=== PATIENT | male | born 1995 | race American Indian/Alaskan Native ===

== ENCOUNTER 2022-03-05 17:03 | Inpatient (IN) | payer SELFPAY ==
[2022-03-05] MEDS ORDERED: ZIPRASIDONE MESYLATE 20 MG VIAL IM SCH (17:08)
[2022-03-05] MEDS ORDERED: WATER FOR INJ Sterile (PF) 10 ML ONE (18:15)
[2022-03-05] MEDS ORDERED: diphenhydrAMINE 50 MG/ML VIAL ONE (18:18)
[2022-03-05] MEDS ORDERED: MORPHINE 2 MG/1 ML INJ ONE (18:55)
[2022-03-05] MEDS ORDERED: SODIUM CHLORIDE 0.9% 1000 ML 1,000 ML IV ONE ×2 (19:32→20:35)
[2022-03-05 20:19] LABS: Albumin 5.4 g/dL (3.9-5); Calcium 10.4 mg/dL (8.4-10.2)
[2022-03-05 20:21] LABS: Basophils # (Auto) 0.1 K/mm3 (0.0-0.1); Basophils % (Auto) 1.1 % (0.0-1.8); Eosinophils % (Auto) 0.1 % (0.0-4.3); Hematocrit 47.9 % (35.5-45.6); Hemoglobin 16.6 gm/dl (11.8-15.2); Lymphocytes # (Auto) 1.8 K/mm3 (1.2-5.4); Lymphocytes % (Auto) 16.3 % (13.4-35.0); Mean Corpuscular HGB Conc 35 % (32-34); Mean Corpuscular Volume 89 fl (84-94); Monocytes # (Auto) 0.7 K/mm3 (0.0-0.8); Monocytes % (Auto) 6.2 % (0.0-7.3); Platelet Count 247 K/mm3 (140-440); Red Blood Count 5.36 M/mm3 (3.65-5.03)
--- NOTE | 2022-03-05 21:55 | XRay Report ---
CHEST 1 VIEW INDICATION / CLINICAL INFORMATION: Altered Mental Status. FINDINGS: SUPPORT DEVICES: None. HEART / MEDIASTINUM: No significant abnormality. LUNGS / PLEURA: No significant pulmonary or pleural abnormality. No pneumothorax. ADDITIONAL FINDINGS: No significant additional findings. IMPRESSION: 1. No acute findings. Signer Name: Erasmo Townsend MD Signed: 03/05/2022 9:51 PM Workstation Name: [facility]
[2022-03-05 22:36] LABS: Creatine Kinase MB 18.2 ng/mL (0.0-4.0)
[2022-03-05] MEDS ORDERED: MORPHINE 2 MG/1 ML INJ IV PRN (23:04)
[2022-03-05] MEDS ORDERED: MORPHINE 4 MG/1 ML INJ IV PRN (23:04)
[2022-03-05] MEDS ORDERED: ONDANSETRON 4 MG/2 ML INJ IV PRN (23:04)
[2022-03-05] MEDS ORDERED: ALBUTEROL 2.5 MG/3 ML NEBU IH PRN (23:04)
--- NOTE | 2022-03-05 23:07 | Emergency Department Report ---
ED General Adult HPI - General Chief complaint: Overdose Stated complaint: OVERDOSE PUI?: No Time Seen by Provider: 03/05/22 17:08 Source: EMS Mode of arrival: Ambulatory Limitations: No Limitations - History of Present Illness Initial comments: pt here after smoking ice, convulsions pt called police for smoking ICE , he wasn;t feeling well , has been hyperactive and moaning , no past medical history -: Gradual, unknown Worsens with: none Associated Symptoms: denies other symptoms. denies: chest pain, cough, headaches, loss of appetite, malaise, nausea/vomiting Treatments Prior to Arrival: none - Related Data Allergies Allergy/AdvReac Type Severity Reaction Status Date / Time No Known Allergies Allergy Verified 03/05/22 18:41 ED Review of Systems ROS: Stated complaint: OVERDOSE Other details as noted in HPI Constitutional: denies: chills, fever Eyes: denies: eye pain, eye discharge, vision change ENT: denies: ear pain, throat pain Respiratory: denies: cough, shortness of breath, wheezing Cardiovascular: denies: chest pain, palpitations Endocrine: no symptoms reported Gastrointestinal: denies: abdominal pain, nausea, diarrhea Genitourinary: denies: urgency, dysuria Musculoskeletal: denies: back pain, joint swelling, arthralgia Skin: denies: rash, lesions Neurological: denies: headache, weakness, paresthesias Psychiatric: denies: anxiety, depression Hematological/Lymphatic: denies: easy bleeding, easy bruising ED Past Medical Hx - Past Medical History Hx Hypertension: No ED Physical Exam - General Limitations: No Limitations General appearance: alert, appears intoxicated, anxious - Head Head exam: Present: atraumatic, normocephalic - Eye Eye exam: Present: normal appearance - ENT ENT exam: Present: mucous membranes moist - Neck Neck exam: Present: normal inspection - Respiratory Respiratory exam: Present: normal lung sounds bilaterally. Absent: respiratory distress - Cardiovascular Cardiovascular Exam: Present: normal rhythm, tachycardia. Absent: systolic murmur, diastolic murmur, rubs, gallop - GI/Abdominal GI/Abdominal exam: Present: soft, normal bowel sounds - Rectal Rectal exam: Present: deferred - Extremities Exam Extremities exam: Present: normal inspection - Back Exam Back exam: Present: normal inspection - Neurological Exam Neurological exam: Present: alert, oriented X3 - Psychiatric Psychiatric exam: Present: agitated, anxious - Expanded Psychiatric Exam Expanded Focused psych exam: Present: pressured speech, psychomotor agitation, restlessness, loose associations - Skin Skin exam: Present: warm, dry, intact, normal color. Absent: rash ED Medical Decision Making - Lab Data Result diagrams: 03/05/22 19:47 03/05/22 19:47 - Radiology Data Radiology results: report reviewed, image reviewed - Medical Decision Making pt was sedated bryant rrival using geodon and benadryl for his agitation , work up showed , renal failure , and elevated CK , fludis given 1013 mishel dmit for medical clearance Critical care attestation.: If time is entered above; I have spent that time in minutes in the direct care of this critically ill patient, excluding procedure time. ED Disposition Clinical Impression: Substance abuse, WILDA (acute kidney injury), Hyponatremia, Rhabdomyolysis Disposition: ADMITTED INPATIENT Is pt being admited?: Yes Does the pt Need Aspirin: No Condition: Fair Referrals: JUAN ANTONIO MENCHACA MD [Primary Care Provider] - 3-5 Days
--- NOTE | 2022-03-05 23:11 | History and Physical Report ---
History of Present Illness Date of examination: 03/05/22 Date of admission: 03/05/22 Chief complaint: Substance abuse History of present illness: 26 years old male with history of methamphetamine abuse was brought to the emergency room by police for overdose. Patient was agitated patient got Benadryl and Geodon after that patient is unresponsive. By the in the ER patient is found to have BUN of 57 creatinine 5.2, sodium 126 and lactic acid 2.70 bicarb of 13 also total CK is 3528. Still going to admit the patient we will put the patient on IV fluid will consult nephrology for evaluation as well as psych evaluation Past History Past Medical History: other (Substance abuse) Past Surgical History: No surgical history Social history: no significant social history Family history: no significant family history Medications and Allergies Allergies Allergy/AdvReac Type Severity Reaction Status Date / Time No Known Allergies Allergy Verified 03/05/22 18:41 Active Meds: Active Medications Ziprasidone (Ziprasidone Mesylate 20 Mg Vial) 20 mg IM ONCE BROOK Review of Systems All systems: negative Constitutional: other (Agitated) Exam - Constitutional General appearance: Present: no acute distress, well-nourished - EENT Eyes: Present: PERRL ENT: hearing intact, clear oral mucosa - Neck Neck: Present: supple, normal ROM - Respiratory Respiratory effort: normal Respiratory: bilateral: CTA - Cardiovascular Heart Sounds: Present: S1 & S2. Absent: rub, click - Extremities Extremities: pulses symmetrical, No edema Peripheral Pulses: within normal limits - Abdominal General gastrointestinal: Present: soft, non-tender, non-distended, normal bowel sounds Male genitourinary: Present: normal - Integumentary Integumentary: Present: clear, warm, dry - Musculoskeletal Musculoskeletal: gait normal, strength equal bilaterally - Psychiatric Psychiatric: appropriate mood/affect, intact judgment & insight - Neurologic Neurologic: CNII-XII intact, moves all extremities HEART Score - HEART Score Troponin: Troponin T < 0.010 ng/mL (0.00-0.029) 03/05/22 21:55 Results - Labs CBC & Chem 7: 03/05/22 19:47 03/05/22 19:47 Labs: Laboratory Last Values WBC 10.9 K/mm3 (4.5-11.0) 03/05/22 19:47 RBC 5.36 M/mm3 (3.65-5.03) H 03/05/22 19:47 Hgb 16.6 gm/dl (11.8-15.2) H 03/05/22 19:47 Hct 47.9 % (35.5-45.6) H 03/05/22 19:47 MCV 89 fl (84-94) 03/05/22 19:47 MCH 31 pg (28-32) 03/05/22 19:47 MCHC 35 % (32-34) H 03/05/22 19:47 RDW 16.0 % (13.2-15.2) H 03/05/22 19:47 Plt Count 247 K/mm3 (140-440) 03/05/22 19:47 Lymph % (Auto) 16.3 % (13.4-35.0) 03/05/22 19:47 [place] % (Auto) 6.2 % (0.0-7.3) 03/05/22 19:47 Eos % (Auto) 0.1 % (0.0-4.3) 03/05/22 19:47 Baso % (Auto) 1.1 % (0.0-1.8) 03/05/22 19:47 Lymph # (Auto) 1.8 K/mm3 (1.2-5.4) 03/05/22 19:47 [place] # (Auto) 0.7 K/mm3 (0.0-0.8) 03/05/22 19:47 Eos # (Auto) 0.0 K/mm3 (0.0-0.4) 03/05/22 19:47 Baso # (Auto) 0.1 K/mm3 (0.0-0.1) 03/05/22 19:47 Seg Neutrophils % 76.3 % (40.0-70.0) H 03/05/22 19:47 Seg Neutrophils # 8.3 K/mm3 (1.8-7.7) H 03/05/22 19:47 Sodium 126 mmol/L (137-145) L 03/05/22 19:47 Potassium 4.6 mmol/L (3.6-5.0) 03/05/22 19:47 Chloride 82.2 mmol/L (98-107) L 03/05/22 19:47 Carbon Dioxide 13 mmol/L (22-30) L 03/05/22 19:47 Anion Gap 35 mmol/L 03/05/22 19:47 BUN 57 mg/dL (9-20) H 03/05/22 19:47 Creatinine 5.2 mg/dL (0.8-1.3) H 03/05/22 19:47 Estimated GFR 16 ml/min 03/05/22 19:47 BUN/Creatinine Ratio 11 % 03/05/22 19:47 Glucose 109 mg/dL (75-100) H 03/05/22 19:47 Lactic Acid 2.70 mmol/L (0.7-2.0) H* 03/05/22 21:55 Calcium 10.4 mg/dL (8.4-10.2) H 03/05/22 19:47 Total Bilirubin 0.50 mg/dL (0.1-1.2) 03/05/22 19:47 AST 52 units/L (5-40) H 03/05/22 19:47 ALT 32 units/L (7-56) 03/05/22 19:47 Alkaline Phosphatase 107 units/L (35-129) 03/05/22 19:47 Total Creatine Kinase 3528 units/L (55-170) H 03/05/22 21:55 CK-MB (CK-2) 18.2 ng/mL (0.0-4.0) H 03/05/22 21:55 CK-MB (CK-2) Rel Index 0.5 (0-4) 03/05/22 21:55 Troponin T < 0.010 ng/mL (0.00-0.029) 03/05/22 21:55 Total Protein 11.2 g/dL (6.3-8.2) H 03/05/22 19:47 Albumin 5.4 g/dL (3.9-5) H 03/05/22 19:47 Albumin/Globulin Ratio 0.9 % 03/05/22 19:47 Salicylates < 0.3 mg/dL (2.8-20.0) L 03/05/22 19:47 Acetaminophen 5.0 ug/mL (10.0-30.0) L 03/05/22 19:47 Plasma/Serum Alcohol < 0.01 % (0-0.07) 03/05/22 21:55 - Imaging and Cardiology Chest x-ray: report reviewed Assessment and Plan VTE prophylaxis?: Mechanical Plan of care discussed with patient/family: Yes - Patient Problems (1) WILDA (acute kidney injury) Current Visit: Yes Status: Acute Plan to address problem: Admit the patient to the medical telemetry. Avoid nephrotoxic drug. Renally dose medication. D5 half-normal saline at the rate of 150 cc per hour. Will consult nephrology for evaluation. Recheck BMP in the morning (2) Hyponatremia Current Visit: Yes Status: Acute Plan to address problem: D5 half-normal saline at the rate of 150 cc per hour. Will consult nephrology for evaluation. Recheck BMP in the morning (3) Rhabdomyolysis Current Visit: Yes Status: Acute Plan to address problem: D5 half-normal saline at the rate of 150 cc per hour. Will consult nephrology for evaluation. Recheck BMP in the morning (4) Substance abuse Current Visit: Yes Status: Acute Plan to address problem: We counseled the patient regarding quit taking drugs. We will consult psych for evaluation (5) DVT prophylaxis Current Visit: Yes Status: Acute Plan to address problem: SCD for DVT prophylaxis. Pepcid 20 mg IV every 12 hours for GI prophylaxis. Patient is a full code
[2022-03-05] MEDS ORDERED: cefTRIAXone/NS 2 GM/100 ML 2 GM/100 ML BAG IV SCH (23:45)
[2022-03-06] MEDS: ACETAMINOPHEN 325 MG TAB PO PRN ×2 (01:01→10:19)
[2022-03-06] MEDS ORDERED: IPRATROPIUM/ALBUTEROL SULFATE 3 ML AMPUL.NEB IH SCH (02:00)
[2022-03-06] MEDS: D5W/0.45% NACL 1,000 ML IV SCH ×2 (02:44→08:28)
[2022-03-06 05:46] LABS: Basophils % (Auto) 0.3 % (0.0-1.8); Eosinophils # (Auto) 0.1 K/mm3 (0.0-0.4); Eosinophils % (Auto) 0.6 % (0.0-4.3); Hematocrit 42.4 % (35.5-45.6); Hemoglobin 14.5 gm/dl (11.8-15.2); Lymphocytes # (Auto) 2.2 K/mm3 (1.2-5.4); Lymphocytes % (Auto) 25.8 % (13.4-35.0); Mean Corpuscular HGB Conc 34 % (32-34); Mean Corpuscular Volume 89 fl (84-94); Monocytes # (Auto) 1.2 K/mm3 (0.0-0.8); Monocytes % (Auto) 14.4 % (0.0-7.3); Platelet Count 191 K/mm3 (140-440); Red Blood Count 4.74 M/mm3 (3.65-5.03); Red Cell Distribution Width 15.8 % (13.2-15.2)
[2022-03-06 05:54] LABS: Calcium 8.9 mg/dL (8.4-10.2)
[2022-03-06 06:42] LABS: Bacteria,Urine 1+ /HPF (Negative); Mucus,Urine FEW /HPF
[2022-03-06 06:43] LABS: Benzodiazepines Screen,Urine Negative; Cannabinoid Screen,Urine Negative; Cocaine Screen,Urine Negative; Methadone Screen,Urine Negative; Opiate Screen,Urine Negative
[2022-03-06 06:58] LABS: Bilirubin,Urine Negative (Negative); Blood,Urine Large (Negative); Color,Urine Yellow (Yellow); Urobilinogen,Urine < 2.0 mg/dL (<2.0)
[2022-03-06 07:02] LABS: Amphetamine Screen,Urine Positive
[2022-03-06] MEDS: IPRATROPIUM/ALBUTEROL SULFATE 3 ML AMPUL.NEB IH SCH ×3 (08:39→21:05)
[2022-03-06] MEDS ORDERED: FAMOTIDINE 20 MG/2 ML INJ IV SCH (10:00)
--- NOTE | 2022-03-06 10:10 | Progress Note ---
Assessment and Plan Assessment and plan: #Rhabdomyolysis secondary to amphetamine intoxication #WILDA secondary to ATNimproving CK 3528 Creatinine 5.2--> 3.6 Continue IV fluid resuscitation at 150 cc/hour. Continue to trend creatinine and CK daily. Continue to monitor #Hyponatremiaimproving Sodium 126--> 133 Continue IV fluid resuscitation 150 cc/hour. Continue to monitor with repeat BMP tomorrow morning. #Polysubstance dependence -Patient engages in the following substances: UDS positive for amphetamines -Counseled patient about the importance of cessation of substance abuse. Offered resources to help with quitting. Patient expresses understanding. Patient is currently under 1013. Psychiatry consulted; pending recs. -Time: +15 mins #Advanced care planning -Disease education conducted, care plan discussed, diagnoses discussed, prognosis discussed, and patient acknowledges understanding with care plan -Time: +30 min Disposition Plan: Continue medical management Total Time Spent with Patient (Minutes): 45 minutes History Interval history: No acute events overnight. Hospitalist Physical - Constitutional Vitals: Temp Pulse Resp BP Pulse Ox 97.4 F L 92 H 22 144/92 100 03/06/22 08:12 03/06/22 08:12 03/06/22 08:12 03/06/22 08:12 03/06/22 08:12 General appearance: Present: no acute distress, well-nourished - EENT Eyes: Present: PERRL, EOM intact ENT: hearing intact, clear oral mucosa, dentition normal - Neck Neck: Present: supple, normal ROM - Respiratory Respiratory effort: normal Respiratory: bilateral: CTA - Cardiovascular Rhythm: regular Heart Sounds: Present: S1 & S2 - Extremities Extremities: no ischemia, pulses intact, pulses symmetrical, No edema, normal temperature, normal color, Full ROM Peripheral Pulses: within normal limits - Abdominal General gastrointestinal: soft, non-tender, non-distended, normal bowel sounds - Integumentary Integumentary: Present: clear, warm, dry - Psychiatric Psychiatric: memory intact, agitated - Neurologic Neurologic: CNII-XII intact, moves all extremities - Allied Health Allied health notes reviewed: nursing HEART Score - HEART Score Troponin: Troponin T < 0.010 ng/mL (0.00-0.029) 03/05/22 22:57 Results - Labs CBC & Chem 7: 03/06/22 04:45 03/06/22 04:45 Labs: Laboratory Last Values WBC 8.6 K/mm3 (4.5-11.0) 03/06/22 04:45 RBC 4.74 M/mm3 (3.65-5.03) 03/06/22 04:45 Hgb 14.5 gm/dl (11.8-15.2) 03/06/22 04:45 Hct 42.4 % (35.5-45.6) 03/06/22 04:45 MCV 89 fl (84-94) 03/06/22 04:45 MCH 31 pg (28-32) 03/06/22 04:45 MCHC 34 % (32-34) 03/06/22 04:45 RDW 15.8 % (13.2-15.2) H 03/06/22 04:45 Plt Count 191 K/mm3 (140-440) 03/06/22 04:45 Lymph % (Auto) 25.8 % (13.4-35.0) 03/06/22 04:45 [place] % (Auto) 14.4 % (0.0-7.3) H 03/06/22 04:45 Eos % (Auto) 0.6 % (0.0-4.3) 03/06/22 04:45 Baso % (Auto) 0.3 % (0.0-1.8) 03/06/22 04:45 Lymph # (Auto) 2.2 K/mm3 (1.2-5.4) 03/06/22 04:45 [place] # (Auto) 1.2 K/mm3 (0.0-0.8) H 03/06/22 04:45 Eos # (Auto) 0.1 K/mm3 (0.0-0.4) 03/06/22 04:45 Baso # (Auto) 0.0 K/mm3 (0.0-0.1) 03/06/22 04:45 Seg Neutrophils % 58.9 % (40.0-70.0) 03/06/22 04:45 Seg Neutrophils # 5.1 K/mm3 (1.8-7.7) 03/06/22 04:45 Sodium 133 mmol/L (137-145) L D 03/06/22 04:45 Potassium 4.0 mmol/L (3.6-5.0) 03/06/22 04:45 Chloride 94.9 mmol/L (98-107) L 03/06/22 04:45 Carbon Dioxide 20 mmol/L (22-30) L D 03/06/22 04:45 Anion Gap 22 mmol/L 03/06/22 04:45 BUN 55 mg/dL (9-20) H 03/06/22 04:45 Creatinine 3.6 mg/dL (0.8-1.3) H 03/06/22 04:45 Estimated GFR 25 ml/min 03/06/22 04:45 BUN/Creatinine Ratio 15 % 03/06/22 04:45 Glucose 110 mg/dL (75-100) H 03/06/22 04:45 Lactic Acid 1.10 mmol/L (0.7-2.0) 03/06/22 04:45 Calcium 8.9 mg/dL (8.4-10.2) 03/06/22 04:45 Total Bilirubin 0.50 mg/dL (0.1-1.2) 03/05/22 19:47 AST 52 units/L (5-40) H 03/05/22 19:47 ALT 32 units/L (7-56) 03/05/22 19:47 Alkaline Phosphatase 107 units/L (35-129) 03/05/22 19:47 Total Creatine Kinase 3528 units/L (55-170) H 03/05/22 21:55 CK-MB (CK-2) 18.2 ng/mL (0.0-4.0) H 03/05/22 21:55 CK-MB (CK-2) Rel Index 0.5 (0-4) 03/05/22 21:55 Troponin T < 0.010 ng/mL (0.00-0.029) 03/05/22 22:57 Total Protein 11.2 g/dL (6.3-8.2) H 03/05/22 19:47 Albumin 5.4 g/dL (3.9-5) H 03/05/22 19:47 Albumin/Globulin Ratio 0.9 % 03/05/22 19:47 Urine Color Yellow (Yellow) 03/05/22 05:50 Urine Turbidity Clear (Clear) 03/05/22 05:50 Urine pH 5.0 (5.0-7.0) 03/05/22 05:50 Ur Specific [place] 1.030 (1.003-1.030) 03/05/22 05:50 Urine Protein 100 mg/dl mg/dL (Negative) 03/05/22 05:50 Urine Glucose (UA) Negative mg/dL (Negative) 03/05/22 05:50 Urine Ketones 40 mg/dL (Negative) 03/05/22 05:50 Urine Blood Large (Negative) A 03/05/22 05:50 Urine Nitrite Negative (Negative) 03/05/22 05:50 Ur Reducing Substances Not Reportable 03/05/22 05:50 Urine Bilirubin Negative (Negative) 03/05/22 05:50 Urine Ictotest Not Reportable 03/05/22 05:50 Urine Urobilinogen < 2.0 mg/dL (<2.0) 03/05/22 05:50 Ur Leukocyte Esterase Negative (Negative) 03/05/22 05:50 Urine WBC (Auto) 5.0 /HPF (0.0-6.0) 03/05/22 05:50 Urine RBC (Auto) 1.0 /HPF (0.0-6.0) 03/05/22 05:50 U Epithel Cells (Auto) 1.0 /HPF (0-13.0) 03/05/22 05:50 Urine Bacteria (Auto) 1+ /HPF (Negative) 03/05/22 05:50 Urine Mucus Few /HPF 03/05/22 05:50 Salicylates < 0.3 mg/dL (2.8-20.0) L 03/05/22 19:47 Urine Opiates Screen Negative 03/05/22 05:50 Urine Methadone Screen Negative 03/05/22 05:50 Acetaminophen 5.0 ug/mL (10.0-30.0) L 03/05/22 19:47 Ur Barbiturates Screen Negative 03/05/22 05:50 Ur Phencyclidine Scrn Negative 03/05/22 05:50 Ur Amphetamines Screen Positive 03/05/22 05:50 U Benzodiazepines Scrn Negative 03/05/22 05:50 Urine Cocaine Screen Negative 03/05/22 05:50 U Marijuana (THC) Screen Negative 03/05/22 05:50 Drugs of Abuse Note Disclamer 03/05/22 05:50 Plasma/Serum Alcohol < 0.01 % (0-0.07) 03/05/22 21:55 [place]/IV: Voiding Method Urinal Active Medications - Current Medications Current Medications: Generic Name Dose Route Start Last Admin Trade Name Freq PRN Reason Stop Dose Admin Acetaminophen 650 mg 03/05/22 23:04 03/06/22 01:01 Acetaminophen 325 Mg Tab PO 650 mg Q4H PRN Administration Pain MILD(1-3)/Fever >100.5/ARIAS Albuterol 2.5 mg 03/05/22 23:04 Albuterol 2.5 Mg/3 Ml Nebu IH Q3HRT PRN Shortness Of Breath Albuterol/Ipratropium 1 ampul 03/06/22 08:00 03/06/22 08:39 Ipratropium/Albuterol Sulfate 3 Ml Ampul.Neb IH 1 ampul Q6HRT BROOK Administration Famotidine 20 mg 03/06/22 10:00 03/06/22 09:01 Famotidine 20 Mg/2 Ml Inj IV 20 mg BID BROOK Administration Dextrose/Sodium Chloride 1,000 mls @ 150 mls/hr 03/05/22 23:45 03/06/22 08:28 D5/0.45ns IV 150 mls/hr DIRECT BROOK Administration Morphine Sulfate 2 mg 03/05/22 23:04 Morphine 2 Mg/1 Ml Inj IV Q4H PRN Pain, Moderate (4-6) Morphine Sulfate 4 mg 03/05/22 23:04 Morphine 4 Mg/1 Ml Inj IV Q4H PRN Pain , Severe (7-10) Ondansetron HCl 4 mg 03/05/22 23:04 Ondansetron 4 Mg/2 Ml Inj IV Q8H PRN Nausea And Vomiting Sodium Chloride 10 ml 03/06/22 10:00 03/06/22 09:01 Sodium Chloride 0.9% 10 Ml Flush Syringe IV 10 ml BID BROOK Administration Sodium Chloride 10 ml 03/05/22 23:04 Sodium Chloride 0.9% 10 Ml Flush Syringe IV PRN PRN LINE FLUSH Ziprasidone 20 mg 03/05/22 17:08 Ziprasidone Mesylate 20 Mg Vial IM ONCE BROOK
--- NOTE | 2022-03-06 11:26 | Consultation ---
History of Present Illness - Reason for Consult Consult date: 03/06/22 Reason for consult: OD - History of Present Psychiatric Illness The patient was seen today. He is lying in bed awake. A sitter is at bedside. He is obviously responding to internal stimuli. The patient states he came to the hospital because he wasn't feeling well. He says "I got a hold of some drugs, ecstasy and meth." The patient is distracted and staring intensely at times. He is mumbling to himself. I'm having to ask him the same questions several times. He's twitching his body during the times he's having these intense staring moments. He says he's hearing voices. I ask them what were they saying, he says "everything." I ask were they telling him to hurt himself or others, he replies "yes" both times. He denies SI/HI. The sitter at bedside says the patient has been talking to himself a lot. She says he's been hyperactive and jumped up and started doing pushups. PAST PSYCHIATRIC HISTORY: Diagnoses: Denies Suicide attempts or Self-harm behavior: Denies Prior psychiatric hospitalizations:: Denies Substance Abuse history: ecstasy and methamphetamines Previous psychiatric medications tried: denies Outpatient treatment: denies PAST MEDICAL HISTORY: Denies Family Psychiatric History: None reported or documented SOCIAL HISTORY Marital Status: Living Arrangements: with mother Employment Status: Employed Access to guns/weapons: Denies Education: high school History of Abuse: Denies Legal History: Denies REVIEW OF SYSTEMS Constitutional: Negative for weight loss ENT: Negative for stridor Respiratory: Negative for cough or hemoptysis All other systems reviewed and are negative MENTAL STATUS General Appearance and Behavior: age appropriate, cooperative, odd, staring intensely Psychomotor Behavior: within normal limits Mood: ok Affect and affective range: congruent with stated mood Thought Process: circumstantial, responding to internal stimuli Thought Content: hallucinations Speech: Normal volume and Regular rate and rhythm Suicidal Ideation: Denies Homicidal Ideation: Denies Hallucinations: Yes Impulse Control: Poor Insight and Judgment: Limited Memory: Limited Attention: Distracted Orientation: alert/oriented Assessment Delusional Disorder Polysubstance Abuse Unintentional Overdose Treatment Plan 1013 Risperidone 0.5mg po BID Depakote DR 125mg po BID Trazodone 50mg po qhs Sitter: Defer to primary Medical: per primary Disposition: Recommend acute psychiatric inpatient treatment Will follow. Thanks Case staffed with Dr. Guevara Medications and Allergies Allergies Allergy/AdvReac Type Severity Reaction Status Date / Time No Known Allergies Allergy Verified 03/05/22 18:41 Active Meds: Active Medications Acetaminophen (Acetaminophen 325 Mg Tab) 650 mg PO Q4H PRN PRN Reason: Pain MILD(1-3)/Fever >100.5/ARIAS Last Admin: 03/06/22 10:19 Dose: 650 mg Albuterol (Albuterol 2.5 Mg/3 Ml Nebu) 2.5 mg IH Q3HRT PRN PRN Reason: Shortness Of Breath Albuterol/Ipratropium (Ipratropium/Albuterol Sulfate 3 Ml Ampul.Neb) 1 ampul IH Q6HRT [facility] Last Admin: 03/06/22 08:39 Dose: 1 ampul Famotidine (Famotidine 20 Mg/2 Ml Inj) 20 mg IV BID [facility] Last Admin: 03/06/22 09:01 Dose: 20 mg Dextrose/Sodium Chloride (D5/0.45ns) 1,000 mls @ 150 mls/hr IV DIRECT [facility] Last Admin: 03/06/22 08:28 Dose: 150 mls/hr Morphine Sulfate (Morphine 2 Mg/1 Ml Inj) 2 mg IV Q4H PRN PRN Reason: Pain, Moderate (4-6) Morphine Sulfate (Morphine 4 Mg/1 Ml Inj) 4 mg IV Q4H PRN PRN Reason: Pain , Severe (7-10) Ondansetron HCl (Ondansetron 4 Mg/2 Ml Inj) 4 mg IV Q8H PRN PRN Reason: Nausea And Vomiting Sodium Chloride (Sodium Chloride 0.9% 10 Ml Flush Syringe) 10 ml IV BID [facility] Last Admin: 03/06/22 09:01 Dose: 10 ml Sodium Chloride (Sodium Chloride 0.9% 10 Ml Flush Syringe) 10 ml IV PRN PRN PRN Reason: LINE FLUSH Ziprasidone (Ziprasidone Mesylate 20 Mg Vial) 20 mg IM ONCE [facility] Mental Status Exam - Vital signs Last Vital Signs Temp 97.4 F L 03/06/22 08:12 Pulse 92 H 03/06/22 08:12 Resp 22 03/06/22 08:12 BP 144/92 03/06/22 08:12 Pulse Ox 100 03/06/22 08:12 Results Result Diagrams: 03/06/22 04:45 03/06/22 04:45 Abnormal lab results 03/05/22 03/05/22 03/05/22 Range/Units 05:50 19:47 19:47 RBC 5.36 H (3.65-5.03) M/mm3 Hgb 16.6 H (11.8-15.2) gm/dl Hct 47.9 H (35.5-45.6) % MCHC 35 H (32-34) % RDW 16.0 H (13.2-15.2) % [place] % (Auto) (0.0-7.3) % [place] # (Auto) (0.0-0.8) K/mm3 Seg Neutrophils % 76.3 H (40.0-70.0) % Seg Neutrophils # 8.3 H (1.8-7.7) K/mm3 Sodium 126 L (137-145) mmol/L Chloride 82.2 L (98-107) mmol/L Carbon Dioxide 13 L (22-30) mmol/L BUN 57 H (9-20) mg/dL Creatinine 5.2 H (0.8-1.3) mg/dL Glucose 109 H (75-100) mg/dL Lactic Acid (0.7-2.0) mmol/L Calcium 10.4 H (8.4-10.2) mg/dL AST 52 H (5-40) units/L Total Creatine Kinase (55-170) units/L CK-MB (CK-2) (0.0-4.0) ng/mL Total Protein 11.2 H (6.3-8.2) g/dL Albumin 5.4 H (3.9-5) g/dL Urine Blood Large A (Negative) Salicylates (2.8-20.0) mg/dL Acetaminophen (10.0-30.0) ug/mL 03/05/22 03/05/22 03/05/22 Range/Units 19:47 19:47 21:55 RBC (3.65-5.03) M/mm3 Hgb (11.8-15.2) gm/dl Hct (35.5-45.6) % MCHC (32-34) % RDW (13.2-15.2) % [place] % (Auto) (0.0-7.3) % [place] # (Auto) (0.0-0.8) K/mm3 Seg Neutrophils % (40.0-70.0) % Seg Neutrophils # (1.8-7.7) K/mm3 Sodium (137-145) mmol/L Chloride (98-107) mmol/L Carbon Dioxide (22-30) mmol/L BUN (9-20) mg/dL Creatinine (0.8-1.3) mg/dL Glucose (75-100) mg/dL Lactic Acid 2.70 H* (0.7-2.0) mmol/L Calcium (8.4-10.2) mg/dL AST (5-40) units/L Total Creatine Kinase (55-170) units/L CK-MB (CK-2) (0.0-4.0) ng/mL Total Protein (6.3-8.2) g/dL Albumin (3.9-5) g/dL Urine Blood (Negative) Salicylates < 0.3 L (2.8-20.0) mg/dL Acetaminophen 5.0 L (10.0-30.0) ug/mL 03/05/22 03/05/22 03/06/22 Range/Units 21:55 22:57 04:45 RBC (3.65-5.03) M/mm3 Hgb (11.8-15.2) gm/dl Hct (35.5-45.6) % MCHC (32-34) % RDW 15.8 H (13.2-15.2) % [place] % (Auto) 14.4 H (0.0-7.3) % [place] # (Auto) 1.2 H (0.0-0.8) K/mm3 Seg Neutrophils % (40.0-70.0) % Seg Neutrophils # (1.8-7.7) K/mm3 Sodium (137-145) mmol/L Chloride (98-107) mmol/L Carbon Dioxide (22-30) mmol/L BUN (9-20) mg/dL Creatinine (0.8-1.3) mg/dL Glucose (75-100) mg/dL Lactic Acid 3.40 H* (0.7-2.0) mmol/L Calcium (8.4-10.2) mg/dL AST (5-40) units/L Total Creatine Kinase 3528 H (55-170) units/L CK-MB (CK-2) 18.2 H (0.0-4.0) ng/mL Total Protein (6.3-8.2) g/dL Albumin (3.9-5) g/dL Urine Blood (Negative) Salicylates (2.8-20.0) mg/dL Acetaminophen (10.0-30.0) ug/mL 03/06/22 Range/Units 04:45 RBC (3.65-5.03) M/mm3 Hgb (11.8-15.2) gm/dl Hct (35.5-45.6) % MCHC (32-34) % RDW (13.2-15.2) % Davidson % (Auto) (0.0-7.3) % Davidson # (Auto) (0.0-0.8) K/mm3 Seg Neutrophils % (40.0-70.0) % Seg Neutrophils # (1.8-7.7) K/mm3 Sodium 133 L D (137-145) mmol/L Chloride 94.9 L (98-107) mmol/L Carbon Dioxide 20 L D (22-30) mmol/L BUN 55 H (9-20) mg/dL Creatinine 3.6 H (0.8-1.3) mg/dL Glucose 110 H (75-100) mg/dL Lactic Acid (0.7-2.0) mmol/L Calcium (8.4-10.2) mg/dL AST (5-40) units/L Total Creatine Kinase (55-170) units/L CK-MB (CK-2) (0.0-4.0) ng/mL Total Protein (6.3-8.2) g/dL Albumin (3.9-5) g/dL Urine Blood (Negative) Salicylates (2.8-20.0) mg/dL Acetaminophen (10.0-30.0) ug/mL All other labs normal.
[2022-03-06] MEDS ORDERED: LORazepam 1 MG TAB PO PRN (12:11)
--- NOTE | 2022-03-06 12:50 | Consultation ---
History of Present Illness - Reason for Consult Consult date: 03/06/22 acute renal failure Requesting physician: NICKIE THURSTON - History of Present Illness 26 years old male with history of methamphetamine abuse was brought to the emergency room by police for overdose. Patient was agitated patient got Benadryl and Geodon after that patient is unresponsive. By the in the ER patient is found to have BUN of 57 creatinine 5.2, sodium 126 and lactic acid 2.70 bicarb of 13 also total CK is 3528. Patient denies any prior knowledge of renal dysfunction. He did have some nausea and vomiting. Also complains of some shortness of breath. Past History Past Medical History: other (Substance abuse) Past Surgical History: No surgical history Social history: no significant social history Family history: no significant family history Medications and Allergies Allergies Allergy/AdvReac Type Severity Reaction Status Date / Time No Known Allergies Allergy Verified 03/05/22 18:41 Active Meds: Active Medications Acetaminophen (Acetaminophen 325 Mg Tab) 650 mg PO Q4H PRN PRN Reason: Pain MILD(1-3)/Fever >100.5/ARIAS Last Admin: 03/06/22 10:19 Dose: 650 mg Albuterol (Albuterol 2.5 Mg/3 Ml Nebu) 2.5 mg IH Q3HRT PRN PRN Reason: Shortness Of Breath Albuterol/Ipratropium (Ipratropium/Albuterol Sulfate 3 Ml Ampul.Neb) 1 ampul IH Q6HRT BROOK Last Admin: 03/06/22 08:39 Dose: 1 ampul Divalproex Sodium (Divalproex Dr 125 Mg Tab) 125 mg PO BID BROOK Famotidine (Famotidine 20 Mg/2 Ml Inj) 10 mg IV BID [facility] Dextrose/Sodium Chloride (D5/0.45ns) 1,000 mls @ 150 mls/hr IV DIRECT BROOK Last Admin: 03/06/22 08:28 Dose: 150 mls/hr Lorazepam (Lorazepam 1 Mg Tab) 1 mg PO Q6H PRN PRN Reason: Agitation Morphine Sulfate (Morphine 2 Mg/1 Ml Inj) 2 mg IV Q4H PRN PRN Reason: Pain, Moderate (4-6) Morphine Sulfate (Morphine 4 Mg/1 Ml Inj) 4 mg IV Q4H PRN PRN Reason: Pain , Severe (7-10) Ondansetron HCl (Ondansetron 4 Mg/2 Ml Inj) 4 mg IV Q8H PRN PRN Reason: Nausea And Vomiting Risperidone (Risperidone 0.25 Mg Tab) 0.5 mg PO BID BROOK Sodium Chloride (Sodium Chloride 0.9% 10 Ml Flush Syringe) 10 ml IV BID BROOK Last Admin: 03/06/22 09:01 Dose: 10 ml Sodium Chloride (Sodium Chloride 0.9% 10 Ml Flush Syringe) 10 ml IV PRN PRN PRN Reason: LINE FLUSH Trazodone HCl (Trazodone 50 Mg Tab) 50 mg PO QHS BROOK Ziprasidone (Ziprasidone Mesylate 20 Mg Vial) 20 mg IM ONCE BROOK Stop: 03/06/22 17:07 Review of Systems All systems: negative (Negative except as noted above) Exam - Vital Signs Vital signs: Vital Signs Temp Pulse Resp BP Pulse Ox 97.7 F 92 H 24 139/90 95 03/05/22 23:25 03/05/22 23:25 03/05/22 23:25 03/05/22 23:25 03/05/22 23:25 - General Appearance General appearance: well-developed, well-nourished, appears stated age EENT: PERRL, mucous membranes moist Neck: Present: neck supple, trachea midline. Absent: JVD/HJR, Masses Respiratory: Clear to Ascultation Heart: regular, normal heart rate, S1S2, no murmurs Gastrointestinal: Present: normal, normoactive bowel sounds Integumentary: no rash, other (No edema) Results - Lab Results 03/06/22 04:45 03/06/22 04:45 Most recent lab results Calcium 8.9 mg/dL (8.4-10.2) 03/06/22 04:45 Assessment and Plan Impression * Acute kidney injury * Substance abuse * Hyponatremia * Metabolic acidosis * Rhabdomyolysis Recommendations * Acute kidney injury most likely secondary to volume depletion. May have a component of rhabdomyolysis as well * His urine shows a specific gravity of 1.030. Also shows large dipstick blood but only 1 RBC per high-power field. CPK level is elevated at 3500 * IV hydration with isotonic fluid. Add bicarbonate to the IV fluid as well * His renal function is improving. He is also currently nonoliguric * No indication for urgent dialysis at this time * Avoid nephrotoxins * Monitor fluid status and electrolytes closely * Thank you very much for the consultation. Shall follow along with you
[2022-03-06] MEDS: DIVALPROEX DR 125 MG TAB PO SCH ×2 (12:52→21:54)
[2022-03-06] MEDS: risperiDONE 0.25 MG TAB PO SCH ×2 (12:58→21:55)
--- NOTE | 2022-03-06 17:10 | Ultrasound Report ---
Renal ultrasound INDICATION: Acute renal failure FINDINGS: Both kidneys measure about 11 cm in length. No hydronephrosis. Urinary bladder is unremarka ble. IMPRESSION: No acute findings. Signer Name: Erasmo Townsend MD Signed: 03/06/2022 5:06 PM Workstation Name: [id number]
[2022-03-06] MEDS: SODIUM CHLORIDE 0.45% 1000 ML 1,000 ML with SODIUM BICARBONATE 75 MEQ IV SCH (18:25)
[2022-03-06] MEDS ORDERED: ZIPRASIDONE MESYLATE 20 MG VIAL IM PRN (20:04)
[2022-03-06] MEDS ORDERED: LORazepam 2 MG/ML VIAL ONE (20:17)
[2022-03-06] MEDS ORDERED: LORazepam 2 MG/ML VIAL IV PRN (20:20)
[2022-03-06] MEDS: traZODone 50 MG TAB PO SCH (21:54)
[2022-03-06] MEDS: FAMOTIDINE 20 MG/2 ML INJ IV SCH (21:54)
[2022-03-07] MEDS: SODIUM CHLORIDE 0.45% 1000 ML 1,000 ML with SODIUM BICARBONATE 75 MEQ IV SCH (01:37)
[2022-03-07] MEDS: IPRATROPIUM/ALBUTEROL SULFATE 3 ML AMPUL.NEB IH SCH ×4 (01:38→22:43)
[2022-03-07] MEDS: FAMOTIDINE 20 MG/2 ML INJ IV SCH (09:07)
[2022-03-07] MEDS: DIVALPROEX DR 125 MG TAB PO SCH ×2 (09:07→21:31)
[2022-03-07] MEDS: risperiDONE 0.25 MG TAB PO SCH ×2 (09:08→22:47)
[2022-03-07 10:02] LABS: Basophils % (Auto) 0.5 % (0.0-1.8); Eosinophils # (Auto) 0.1 K/mm3 (0.0-0.4); Eosinophils % (Auto) 3.3 % (0.0-4.3); Hematocrit 36.7 % (35.5-45.6); Hemoglobin 12.7 gm/dl (11.8-15.2); Lymphocytes % (Auto) 26.7 % (13.4-35.0); Mean Corpuscular HGB Conc 35 % (32-34); Mean Corpuscular Volume 90 fl (84-94); Monocytes # (Auto) 0.5 K/mm3 (0.0-0.8); Monocytes % (Auto) 13.4 % (0.0-7.3); Platelet Count 158 K/mm3 (140-440); Red Blood Count 4.09 M/mm3 (3.65-5.03); Red Cell Distribution Width 15.8 % (13.2-15.2)
--- NOTE | 2022-03-07 10:10 | Progress Note ---
Assessment and Plan Assessment and plan: #Rhabdomyolysis secondary to amphetamine intoxicationworsening #WILDA secondary to ATN and vasomotor nephropathyresolved CK 3528--> 4017 Creatinine 5.2--> 3.6--> 1.1 Continue IV fluid resuscitation at 150 cc/hour. Continue to trend creatinine and CK daily. Continue to monitor #Hyponatremiaresolved Sodium 126--> 133-->137 Continue IV fluid resuscitation 150 cc/hour. Continue to monitor with repeat BMP tomorrow morning. #HIV Starting home Biktarvy 1 tablet daily #Polysubstance dependence -Patient engages in the following substances: UDS positive for amphetamines -Counseled patient about the importance of cessation of substance abuse. Offered resources to help with quitting. Patient expresses understanding. Psychiatry consulted; appreciate recs. 1013 has been discontinued. -Time: +15 mins #Advanced care planning -Disease education conducted, care plan discussed, diagnoses discussed, prognosis discussed, and patient acknowledges understanding with care plan -Time: +30 min #Discharge planning - Patient is pending improvement of rhabdomyolysis - Case management has been made aware. - Discharge is tentatively tomorrow Disposition Plan: Continue medical management Total Time Spent with Patient (Minutes): 45 min History Interval history: No acute events overnight. Hospitalist Physical - Constitutional Vitals: Temp Pulse Resp BP Pulse Ox 98.3 F 107 H 20 128/88 99 03/07/22 08:00 03/07/22 08:00 03/07/22 08:00 03/07/22 08:00 03/07/22 04:00 General appearance: Present: no acute distress, well-nourished, other (Asleep in bed) - EENT Eyes: Present: PERRL, EOM intact ENT: hearing intact, clear oral mucosa, dentition normal - Neck Neck: Present: supple, normal ROM - Respiratory Respiratory effort: normal Respiratory: bilateral: CTA - Cardiovascular Rhythm: regular Heart Sounds: Present: S1 & S2 - Extremities Extremities: no ischemia, pulses intact, pulses symmetrical, No edema, normal temperature, normal color, Full ROM Peripheral Pulses: within normal limits - Abdominal General gastrointestinal: soft, non-tender, non-distended, normal bowel sounds - Integumentary Integumentary: Present: clear, warm, dry - Psychiatric Psychiatric: agitated - Neurologic Neurologic: CNII-XII intact, moves all extremities - Allied Health Allied health notes reviewed: nursing HEART Score - HEART Score Troponin: Troponin T < 0.010 ng/mL (0.00-0.029) 03/05/22 22:57 Results - Labs CBC & Chem 7: 03/07/22 09:37 03/07/22 09:37 Labs: Laboratory Last Values WBC 3.7 K/mm3 (4.5-11.0) L 03/07/22 09:37 RBC 4.09 M/mm3 (3.65-5.03) 03/07/22 09:37 Hgb 12.7 gm/dl (11.8-15.2) 03/07/22 09:37 Hct 36.7 % (35.5-45.6) 03/07/22 09:37 MCV 90 fl (84-94) 03/07/22 09:37 MCH 31 pg (28-32) 03/07/22 09:37 MCHC 35 % (32-34) H 03/07/22 09:37 RDW 15.8 % (13.2-15.2) H 03/07/22 09:37 Plt Count 158 K/mm3 (140-440) 03/07/22 09:37 Lymph % (Auto) 26.7 % (13.4-35.0) 03/07/22 09:37 [place]urry % (Auto) 13.4 % (0.0-7.3) H 03/07/22 09:37 Eos % (Auto) 3.3 % (0.0-4.3) 03/07/22 09:37 Baso % (Auto) 0.5 % (0.0-1.8) 03/07/22 09:37 Lymph # (Auto) 1.0 K/mm3 (1.2-5.4) L 03/07/22 09:37 Scurry # (Auto) 0.5 K/mm3 (0.0-0.8) 03/07/22 09:37 Eos # (Auto) 0.1 K/mm3 (0.0-0.4) 03/07/22 09:37 Baso # (Auto) 0.0 K/mm3 (0.0-0.1) 03/07/22 09:37 Seg Neutrophils % 56.1 % (40.0-70.0) 03/07/22 09:37 Seg Neutrophils # 2.1 K/mm3 (1.8-7.7) 03/07/22 09:37 Sodium 133 mmol/L (137-145) L D 03/06/22 04:45 Potassium 4.0 mmol/L (3.6-5.0) 03/06/22 04:45 Chloride 94.9 mmol/L (98-107) L 03/06/22 04:45 Carbon Dioxide 20 mmol/L (22-30) L D 03/06/22 04:45 Anion Gap 22 mmol/L 03/06/22 04:45 BUN 55 mg/dL (9-20) H 03/06/22 04:45 Creatinine 3.6 mg/dL (0.8-1.3) H 03/06/22 04:45 Estimated GFR 25 ml/min 03/06/22 04:45 BUN/Creatinine Ratio 15 % 03/06/22 04:45 Glucose 110 mg/dL (75-100) H 03/06/22 04:45 Lactic Acid 1.10 mmol/L (0.7-2.0) 03/06/22 04:45 Calcium 8.9 mg/dL (8.4-10.2) 03/06/22 04:45 Total Bilirubin 0.50 mg/dL (0.1-1.2) 03/05/22 19:47 AST 52 units/L (5-40) H 03/05/22 19:47 ALT 32 units/L (7-56) 03/05/22 19:47 Alkaline Phosphatase 107 units/L (35-129) 03/05/22 19:47 Total Creatine Kinase 3528 units/L (55-170) H 03/05/22 21:55 CK-MB (CK-2) 18.2 ng/mL (0.0-4.0) H 03/05/22 21:55 CK-MB (CK-2) Rel Index 0.5 (0-4) 03/05/22 21:55 Troponin T < 0.010 ng/mL (0.00-0.029) 03/05/22 22:57 Total Protein 11.2 g/dL (6.3-8.2) H 03/05/22 19:47 Albumin 5.4 g/dL (3.9-5) H 03/05/22 19:47 Albumin/Globulin Ratio 0.9 % 03/05/22 19:47 Urine Color Yellow (Yellow) 03/05/22 05:50 Urine Turbidity Clear (Clear) 03/05/22 05:50 Urine pH 5.0 (5.0-7.0) 03/05/22 05:50 Ur Specific [place] 1.030 (1.003-1.030) 03/05/22 05:50 Urine Protein 100 mg/dl mg/dL (Negative) 03/05/22 05:50 Urine Glucose (UA) Negative mg/dL (Negative) 03/05/22 05:50 Urine Ketones 40 mg/dL (Negative) 03/05/22 05:50 Urine Blood Large (Negative) A 03/05/22 05:50 Urine Nitrite Negative (Negative) 03/05/22 05:50 Ur Reducing Substances Not Reportable 03/05/22 05:50 Urine Bilirubin Negative (Negative) 03/05/22 05:50 Urine Ictotest Not Reportable 03/05/22 05:50 Urine Urobilinogen < 2.0 mg/dL (<2.0) 03/05/22 05:50 Ur Leukocyte Esterase Negative (Negative) 03/05/22 05:50 Urine WBC (Auto) 5.0 /HPF (0.0-6.0) 03/05/22 05:50 Urine RBC (Auto) 1.0 /HPF (0.0-6.0) 03/05/22 05:50 U Epithel Cells (Auto) 1.0 /HPF (0-13.0) 03/05/22 05:50 Urine Bacteria (Auto) 1+ /HPF (Negative) 03/05/22 05:50 Urine Mucus Few /HPF 03/05/22 05:50 Salicylates < 0.3 mg/dL (2.8-20.0) L 03/05/22 19:47 Urine Opiates Screen Negative 03/05/22 05:50 Urine Methadone Screen Negative 03/05/22 05:50 Acetaminophen 5.0 ug/mL (10.0-30.0) L 03/05/22 19:47 Ur Barbiturates Screen Negative 03/05/22 05:50 Ur Phencyclidine Scrn Negative 03/05/22 05:50 Ur Amphetamines Screen Positive 03/05/22 05:50 U Benzodiazepines Scrn Negative 03/05/22 05:50 Urine Cocaine Screen Negative 03/05/22 05:50 U Marijuana (THC) Screen Negative 03/05/22 05:50 Drugs of Abuse Note Disclamer 03/05/22 05:50 Plasma/Serum Alcohol < 0.01 % (0-0.07) 03/05/22 21:55 [place]/IV: Voiding Method Toilet Active Medications - Current Medications Current Medications: Generic Name Dose Route Start Last Admin Trade Name Freq PRN Reason Stop Dose Admin Acetaminophen 650 mg 03/05/22 23:04 03/06/22 10:19 Acetaminophen 325 Mg Tab PO 650 mg Q4H PRN Administration Pain MILD(1-3)/Fever >100.5/ARIAS Albuterol 2.5 mg 03/05/22 23:04 Albuterol 2.5 Mg/3 Ml Nebu IH Q3HRT PRN Shortness Of Breath Albuterol/Ipratropium 1 ampul 03/06/22 08:00 03/07/22 08:32 Ipratropium/Albuterol Sulfate 3 Ml Ampul.Neb IH Not Given Q6HRT BROOK Divalproex Sodium 125 mg 03/06/22 12:00 03/07/22 09:[address] 125 Mg Tab PO 125 mg BID BROOK Administration Famotidine 10 mg 03/06/22 22:00 03/07/22 09:07 Famotidine 20 Mg/2 Ml Inj IV Not Given BID BROOK Sodium Bicarbonate 75 meq/ 1,075 mls @ 150 mls/hr 03/06/22 13:00 03/07/22 01:37 Sodium Chloride IV 150 mls/hr DIRECT BROOK Administration Lorazepam 1 mg 03/06/22 12:11 Lorazepam 1 Mg Tab PO Q6H PRN Agitation Lorazepam 2 mg 03/06/22 20:20 03/06/22 20:29 Lorazepam 2 Mg/Ml Vial IV 2 mg Q4H PRN Administration Agitation Morphine Sulfate 2 mg 03/05/22 23:04 03/07/22 07:57 Morphine 2 Mg/1 Ml Inj IV 2 mg Q4H PRN Administration Pain, Moderate (4-6) Morphine Sulfate 4 mg 03/05/22 23:04 Morphine 4 Mg/1 Ml Inj IV Q4H PRN Pain , Severe (7-10) Ondansetron HCl 4 mg 03/05/22 23:04 Ondansetron 4 Mg/2 Ml Inj IV Q8H PRN Nausea And Vomiting Risperidone 0.5 mg 03/06/22 12:00 03/07/22 09:08 Risperidone 0.25 Mg Tab PO Not Given BID BROOK Sodium Chloride 10 ml 03/06/22 10:00 03/07/22 09:08 Sodium Chloride 0.9% 10 Ml Flush Syringe IV 10 ml BID BROOK Administration Sodium Chloride 10 ml 03/05/22 23:04 Sodium Chloride 0.9% 10 Ml Flush Syringe IV PRN PRN LINE FLUSH Trazodone HCl 50 mg 03/06/22 22:00 03/06/22 21:54 Trazodone 50 Mg Tab PO 50 mg QHS BROOK Administration Ziprasidone 20 mg 03/06/22 20:04 Ziprasidone Mesylate 20 Mg Vial IM Q12H PRN Agitation
[2022-03-07 10:51] LABS: BUN/Creatinine Ratio 15; Blood Urea Nitrogen 17 mg/dL (9-20); Hemolysis Index 1
[2022-03-07] MEDS ORDERED: DOLUTEGRAVIR 50 MG, TENOFOVIR 300 MG, EMTRICITABINE 200 MG PO SCH (11:00)
--- NOTE | 2022-03-07 12:47 | Progress Note ---
Subjective - Reason for Consult Consult date: 03/07/22 Reason for consult: hallucinations - Chief Complaint Chief complaint: The patient was seen today. He is sleeping. He easily arouses. He is easily irritable, but cooperative. He denies SI/HI. He also denies hallucinations. He says "not really since I been here." I ask the patient how did he feel overall. He gets upset, and said "I just told you I'm good. I'm not suicidal or hearing voices. Stop trying to make me say shit that's not going on." The sitter at beside says he had refused care yesterday. I ask the patient why was he refusing, he says "I'm not refusing sh*t. Those hoes keep fuing with me. Man leave me alone. I'm trying to sleep." The patient no longer meets criteria for inpatient. He can be managed on an outpatient basis. REVIEW OF SYSTEMS Constitutional: Negative for weight loss ENT: Negative for stridor Respiratory: Negative for cough or hemoptysis All other systems reviewed and are negative MENTAL STATUS General Appearance and Behavior: age appropriate, cooperative, irritable Psychomotor Behavior: within normal limits Mood: ok Affect and affective range: congruent with stated mood Thought Process: goal directed Thought Content: Denies Speech: Normal volume and Regular rate and rhythm Suicidal Ideation: Denies Homicidal Ideation: Denies Hallucinations: Denies Impulse Control: Limited Insight and Judgment: Limited Memory: Limited Attention: sleeping Orientation: alert/oriented Assessment Delusional Disorder Polysubstance Abuse Unintentional Overdose Treatment Plan d/c 1013 Risperidone 0.5mg po BID Depakote DR 125mg po BID Trazodone 50mg po qhs Sitter: Defer to primary Medical: per primary Disposition: Do not recommend acute psychiatric inpatient treatment. Explained to the patient that he should seek immediate assistance if SI/HI or any fear of endangerment arise. He is to follow up in 7 to 14 days with outpatient psych upon discharge Radio Dispatcher to give the patient all necessary outpatient resources. Will sign off. Thanks Case staffed with Dr. Guevara Mental Status Exam - Vital signs Last Vital Signs Temp 98.2 F 03/07/22 11:30 Pulse 76 03/07/22 11:30 Resp 18 03/07/22 11:30 BP 124/76 03/07/22 11:30 Pulse Ox 100 03/07/22 11:30
--- NOTE | 2022-03-07 12:58 | Progress Note ---
Assessment and Plan Impression * Acute kidney injury * Substance abuse * Hyponatremia * Metabolic acidosis * Rhabdomyolysis * Hypophosphatemia Recommendations * Acute kidney injury most likely secondary to volume depletion. May have a component of rhabdomyolysis as well * His urine shows a specific gravity of 1.030. Also shows large dipstick blood but only 1 RBC per high-power field. CPK level is approximately 4000 * Continue isotonic fluid with bicarbonate * His renal function has improved significantly. Serum creatinine has come down to 1.1 * Avoid nephrotoxins * Monitor fluid status and electrolytes closely * Replace phosphorus Subjective Date of service: 03/07/22 Interval history: Patient is sleeping comfortably. I was able to wake him up but he indicated that he did not want to be examined Objective - Exam Narrative Exam: Patient refused to be examined - Vital Signs Vital signs: Vital Signs - 12hr 03/07/22 03/07/22 03/07/22 04:00 08:00 11:30 Temperature 97.8 F 98.3 F 98.2 F Pulse Rate 80 107 H 76 Respiratory 18 20 18 Rate Blood Pressure 123/70 128/88 124/76 [Left] O2 Sat by Pulse 99 100 Oximetry - Lab 03/07/22 09:37 03/07/22 09:37 Most recent lab results Calcium 9.0 mg/dL (8.4-10.2) 03/07/22 09:37 Phosphorus 2.10 mg/dL (2.5-4.5) L 03/07/22 09:37 Magnesium 2.40 mg/dL (1.7-2.3) H 03/07/22 09:37 Medications & Allergies - Medications Allergies/Adverse Reactions: Allergies No Known Allergies Allergy (Verified 03/05/22 18:41) Home Medications: Home Medications Medication Instructions Recorded Confirmed Last Taken Type Divalproex Dr [Jorge KEENE] 125 mg PO BID #60 tablet 03/07/22 Unknown Rx risperiDONE [RisperDAL] 0.5 mg PO BID #60 03/07/22 Unknown Rx traZODone [Desyrel] 50 mg PO QHS #30 tab 03/07/22 Unknown Rx Active Medications: Generic Name Dose Route Start Last Admin Trade Name Freq PRN Reason Stop Dose Admin Acetaminophen 650 mg 03/05/22 23:04 03/06/22 10:19 Acetaminophen 325 Mg Tab PO 650 mg Q4H PRN Administration Pain MILD(1-3)/Fever >100.5/ARIAS Albuterol 2.5 mg 03/05/22 23:04 Albuterol 2.5 Mg/3 Ml Nebu IH Q3HRT PRN Shortness Of Breath Albuterol/Ipratropium 1 ampul 03/06/22 08:00 03/07/22 08:32 Ipratropium/Albuterol Sulfate 3 Ml Ampul.Neb IH Not Given Q6HRT BROOK Divalproex Sodium 125 mg 03/06/22 12:00 03/07/22 09:[address] 125 Mg Tab PO 125 mg BID BROOK Administration Dolutegravir Sodium 50 mg 03/07/22 11:00 Dolutegravir 50 Mg Tab PO QDAY BROOK Emtricitabine 200 mg 03/07/22 10:00 Emtricitabine 200 Mg Cap PO QDAY BROOK Famotidine 10 mg 03/06/22 22:00 03/07/22 09:07 Famotidine 20 Mg/2 Ml Inj IV Not Given BID [facility] Sodium Bicarbonate 75 meq/ 1,075 mls @ 150 mls/hr 03/06/22 13:00 03/07/22 01:37 Sodium Chloride IV 150 mls/hr DIRECT BROOK Administration Lorazepam 1 mg 03/06/22 12:11 Lorazepam 1 Mg Tab PO Q6H PRN Agitation Lorazepam 2 mg 03/06/22 20:20 03/06/22 20:29 Lorazepam 2 Mg/Ml Vial IV 2 mg Q4H PRN Administration Agitation Morphine Sulfate 2 mg 03/05/22 23:04 03/07/22 07:57 Morphine 2 Mg/1 Ml Inj IV 2 mg Q4H PRN Administration Pain, Moderate (4-6) Morphine Sulfate 4 mg 03/05/22 23:04 Morphine 4 Mg/1 Ml Inj IV Q4H PRN Pain , Severe (7-10) Ondansetron HCl 4 mg 03/05/22 23:04 Ondansetron 4 Mg/2 Ml Inj IV Q8H PRN Nausea And Vomiting Risperidone 0.5 mg 03/06/22 12:00 03/07/22 09:08 Risperidone 0.25 Mg Tab PO Not Given BID BROOK Sodium Chloride 10 ml 03/06/22 10:00 03/07/22 09:08 Sodium Chloride 0.9% 10 Ml Flush Syringe IV 10 ml BID BROOK Administration Sodium Chloride 10 ml 03/05/22 23:04 Sodium Chloride 0.9% 10 Ml Flush Syringe IV PRN PRN LINE FLUSH Tenofovir Disoproxil Fumarate 300 mg 03/07/22 10:00 Tenofovir 300 Mg Tab PO QDAY BROOK Trazodone HCl 50 mg 03/06/22 22:00 03/06/22 21:54 Trazodone 50 Mg Tab PO 50 mg QHS BROOK Administration Ziprasidone 20 mg 03/06/22 20:04 Ziprasidone Mesylate 20 Mg Vial IM Q12H PRN Agitation
[2022-03-07] MEDS: TENOFOVIR 300 MG TAB PO SCH (14:02)
[2022-03-07] MEDS: DOLUTEGRAVIR 50 MG TAB PO SCH (14:03)
[2022-03-07] MEDS: EMTRICITABINE 200 MG CAP PO SCH (14:03)
[2022-03-07] MEDS ORDERED: SODIUM BICARBONATE 75 MEQ in SODIUM CHLORIDE 0.45% 1000 ML 1,000 ML IV SCH (15:00)
[2022-03-07] MEDS: traZODone 50 MG TAB PO SCH (21:29)
[2022-03-07] MEDS: FAMOTIDINE 20 MG TAB PO SCH (21:30)
[2022-03-07] MEDS: PHOS-NAK POWDER PACKET PO SCH (21:41)
[2022-03-08] MEDS: IPRATROPIUM/ALBUTEROL SULFATE 3 ML AMPUL.NEB IH SCH (02:58)
--- NOTE | 2022-03-08 07:54 | Discharge Summary ---
Providers - Providers Date of Admission: 03/05/22 23:04 Date of discharge: 03/08/22 Attending physician: FRANSISCO SANTOS MD 03/05/22 23:04 Consult to Physician [CONS] Routine Comment: Consulting Provider: DAVID BARLOW Physician Instructions: Reason For Exam: meghana 03/05/22 23:06 psychiatry consult [Consult to Mental Health] [CONS] Routine Reason For Exam: Substance abuse Primary care physician: JUAN ANTONIO MENCHACA Hospitalization Reason for admission: Rhabdomyolysis, ATN, hyponatremia Condition: Fair Pertinent studies: Reviewed. Procedures: None. Hospital course: Patient is a 26-year-old male past medical history of HIV (on antiretrovirals), anxiety, and polysubstance dependence (methamphetamines) who presented to the ED via transport by police in the setting of overdose. The patient was agitated and received Benadryl and Geodon after which she became unresponsive. In the ED, the patient was found to be hemodynamically stable. Patient's labs were found to be unremarkable for sodium 126, bicarb 13, chloride 82, creatinine 5.2, and creatinine kinase 3528. Patient was admitted for management of MEGHANA secondary to ATN as a result of rhabdomyolysis. Patient was started on IV fluid resuscitation. Nephrology was consulted for further management. The patient was placed under 1013 requiring evaluation by psychiatry. The patient's creatinine has since returned back to baseline. Patient was counseled at length about the importance of illicit substance cessation. The patient's 1013 was discontinued. Patient was counseled about following up with outpatient psychiatry in 1 to 2 weeks. Patient is medically clear for discharge. Disposition: 01 HOME / SELF CARE / HOMELESS Final Discharge Diagnosis (Prints w/discharge instructions): MEGHANA secondary to ATN and vasomotor nephropathy, rhabdomyolysis secondary to amphetamine intoxication, hyponatremia, HIV, polysubstance dependence. Time spent for discharge: 45 min Core Measure Documentation - Palliative Care Palliative Care/ Comfort Measures: Not Applicable - Core Measures Any of the following diagnoses?: none Exam - Constitutional Vitals: Temp Pulse Resp BP Pulse Ox 98 F 78 18 105/74 98 03/08/22 02:13 03/08/22 06:00 03/08/22 02:13 03/08/22 02:13 03/08/22 02:55 General appearance: Present: no acute distress, well-nourished - EENT Eyes: Present: PERRL, EOM intact ENT: hearing intact, clear oral mucosa, dentition normal - Neck Neck: Present: supple, normal ROM - Respiratory Respiratory effort: normal Respiratory: bilateral: CTA - Cardiovascular Rhythm: regular Heart Sounds: Present: S1 & S2 - Extremities Extremities: no ischemia, pulses intact, pulses symmetrical, No edema, normal temperature, normal color, Full ROM Peripheral Pulses: within normal limits - Abdominal General gastrointestinal: Present: soft, non-tender, non-distended, normal bowel sounds Male genitourinary: Present: deferred - Rectal Rectal Exam: deferred - Integumentary Integumentary: Present: clear, warm, dry - Musculoskeletal Musculoskeletal: strength equal bilaterally - Psychiatric Psychiatric: memory intact, agitated, depressed - Neurologic Neurologic: CNII-XII intact, moves all extremities - Allied Health Allied health notes reviewed: nursing Plan Activity: no restrictions Diet: regular Additional Instructions: Patient is a 26-year-old male past medical history of HIV (on antiretrovirals), anxiety, and polysubstance dependence (methamphetamines) who presented to the ED via transport by police in the setting of overdose. The patient was agitated and received Benadryl and Geodon after which she became unresponsive. In the ED, the patient was found to be hemodynamically stable. Patient's labs were found to be unremarkable for sodium 126, bicarb 13, chloride 82, creatinine 5.2, and creatinine kinase 3528. Patient was admitted for management of MEGHANA secondary to ATN as a result of r habdomyolysis. Patient was started on IV fluid resuscitation. Nephrology was consulted for further management. The patient was placed under 1013 requiring evaluation by psychiatry. The patient's creatinine has since returned back to baseline. Patient was counseled at length about the importance of illicit substance cessation. The patient's 1013 was discontinued. Patient was counseled about following up with outpatient psychiatry in 1 to 2 weeks. Patient is medically clear for discharge. Care Plan Goals: Patient is medically cleared for discharge. Assessment: Patient is a 26-year-old male past medical history of HIV (on antiretrovirals), anxiety, and polysubstance dependence (methamphetamines) who presented to the ED via transport by police in the setting of overdose. The patient was agitated and received Benadryl and Geodon after which she became unresponsive. In the ED, the patient was found to be hemodynamically stable. Patient's labs were found to be unremarkable for sodium 126, bicarb 13, chloride 82, creatinine 5.2, and creatinine kinase 3528. Patient was admitted for management of MEGHANA secondary to ATN as a result of rhabdomyolysis. Patient was started on IV fluid resuscitation. Nephrology was consulted for further management. The patient was placed under 1013 requiring evaluation by psychiatry. The patient's creatinine has since returned back to baseline. Patient was counseled at length about the importance of illicit substance cessation. The patient's 1013 was discontinued. Patient was counseled about following up with outpatient psychiatry in 1 to 2 weeks. Patient is medically clear for discharge. Follow up with: JUAN ANTONIO MENCHACA MD [Primary Care Provider] - 3-5 Days Forms: AMA Form Prescriptions: traZODone [Desyrel] 50 mg PO QHS #[address] [DepaKOTE DR] 125 mg PO BID #60 tablet risperiDONE [RisperDAL] 0.5 mg PO BID #60
[2022-03-08] MEDS: TENOFOVIR 300 MG TAB PO SCH (11:18)
[2022-03-08] MEDS: EMTRICITABINE 200 MG CAP PO SCH (11:18)
[2022-03-08] MEDS: risperiDONE 0.25 MG TAB PO SCH (11:19)
[2022-03-08] MEDS: FAMOTIDINE 20 MG TAB PO SCH (11:19)
[2022-03-08] MEDS: PHOS-NAK POWDER PACKET PO SCH (11:38)
[2022-03-08] MEDS: DIVALPROEX DR 125 MG TAB PO SCH (11:41)
[2022-03-08] MEDS: DOLUTEGRAVIR 50 MG TAB PO SCH (11:41)
[2022-03-08 13:27] VITALS: BP 126/51
== END 2022-03-08 12:35 | disposition home or self-care (01) | DRG 917 ==
LOC: ED 17:03 → 4A 23:04
PROVIDERS: ADMIT Hospitalist; ATTEND Student in an Organized Health Care Education/Training Program
DX: T50.991A Poisoning by other drugs, medicaments and biological substances, accidental (unintentional), initial encounter (principal); N17.0 Acute kidney failure with tubular necrosis; M62.82 Rhabdomyolysis; E87.1 Hypo-osmolality and hyponatremia; F19.10 Other psychoactive substance abuse, uncomplicated; Z21 Asymptomatic human immunodeficiency virus [HIV] infection status; F22 Delusional disorders; E83.39 Other disorders of phosphorus metabolism; Y92.89 Other specified places as the place of occurrence of the external cause
CPT/HCPCS: 36415; 71045; 76770; 80048; 80053; 80307; 80320; 81001; 82140; 82550; 82553; 83735; 84100; 84484; 85025; 94640; G0378; J3490; J7070; G0480; J0696; J1200; J2060; J2270; J3486; J7030